=== PATIENT | female | born 1965 | race Caucasian/White ===

== ENCOUNTER → 2024-12-04 | Outpatient (CLI) | payer BC ==
[2024-12-06 01:51] LABS: VARICELLA-ZOSTER VIRUS AB,IGG 53.9 S/CO (<=0.99); VARICELLA-ZOSTER VIRUS AB,IGM 1.12 ISR (<=0.90)
== END ==
LOC: LAB 15:13 → LAB SHORT 15:13
PROVIDERS: Family Medicine
DX: R12 Heartburn (principal)
CPT/HCPCS: 86787